=== PATIENT | male | born 1945 | race Caucasian/White ===

== ENCOUNTER 2020-11-26 10:05 | Inpatient (IN) ==
[2020-11-26] MEDS ORDERED: Ondansetron 4 mg VIAL 2 MG/ML 2 ml VIAL IV PRN (11:19)
[2020-11-26] MEDS ORDERED: Al Hydrox/Mg Hydrox/Simet LIQ 30 ML UDC PO PRN (11:19)
[2020-11-26 11:21] LABS: ABS Basophils 0.1 10^3/ul (0-0.2); ABS Eosinophils 0.1 10^3/ul (0-0.6); ABS Lymphocytes 1.7 10^3/ul (1.0-4.8); ABS Monocytes 0.8 10^3/ul (0-0.8); Eosinophil % 2.1 %; Hematocrit 36 % (42-52); Hemoglobin 12.3 g/dL (14.0-18.0); Lymphocyte % 25.3 %; Mean Corpuscular HGB Conc 34 g/dL (31-36); Mean Corpuscular Hemoglobin 33 pg (27-31); Mean Corpuscular Volume 96 fL (80-94); Nucleated Red Blood Cells % 0.1; Platelet Count 234 10^3/uL (150-450); Red Blood Count 3.73 10^6 /uL (4.18-5.48); Red Cell Distribution Width 14 % (10-15); White Blood Count 6.7 10^3/uL (3.5-10.8)
[2020-11-26] MEDS ORDERED: Albuterol HFA INHALER 8 gm MDI INH PRN (11:23)
[2020-11-26 11:38] LABS: ALT 11 U/L (7-52); Albumin 3.7 g/dL (3.2-5.2); Albumin/Globulin Ratio 1.2 (1-3); Alkaline Phosphatase 87 U/L (34-104); Anion Gap 5 mmol/L (2-11); BUN/Creatinine Ratio 19.2 (8-20); Blood Urea Nitrogen 23 mg/dL (6-24); CO2 Carbon Dioxide 29 mmol/L (22-32); Calcium 9.3 mg/dL (8.6-10.3); Chloride 107 mmol/L (101-111); EGFR African American 71.2 (>60); EGFR Non-African American 58.9 (>60); Globulin 3.1 g/dL (2-4); Glucose 110 mg/dL (70-100); Potassium 4.1 mmol/L (3.5-5.0); Sodium 141 mmol/L (135-145); Total Protein 6.8 g/dL (6.4-8.9)
[2020-11-26 11:47] LABS: AST 21 U/L (13-39); Cholesterol 122 mg/dL; HDL Cholesterol 26.1 mg/dL; LDL Cholesterol 30 mg/dL; Magnesium 2.1 mg/dL (1.9-2.7); Triglycerides 328 mg/dL
[2020-11-26] MEDS: Nicotine PATCH 21 MG/24 HR PATCH TRANSDERM SCH (11:53)
[2020-11-26] MEDS ORDERED: Heparin DRIP 25,000 UNITS BAG 25,000 UNITS/500 ML BAG IV SCH (12:15)
[2020-11-26 12:33] LABS: Activated Partial Thrombo Time 53.3 seconds (26.0-38.0); INR 1.05 (0.82-1.09)
[2020-11-26] MEDS ORDERED: Heparin 5000 UNITS/ML 1 mL VIAL IV PRN (13:00)
[2020-11-26] MEDS ORDERED: NS 0.9% 1000 ml BAG 1,000 ML IV SCH ×2 (13:30→17:45)
[2020-11-26] MEDS ORDERED: Perflutren Lipid Microsphere 3 ML VIAL ONE (13:43)
[2020-11-26 14:24] LABS: TSH Ultra Thyroid Stim Horm 2.24 mcIU/mL (0.34-5.60)
[2020-11-26] MEDS ORDERED: Heparin 1,000 UNIT/ML 10 ml (10,000 UNITS) CATHLAB/DIALYSIS ONE ×4 (15:02→17:13)
[2020-11-26] MEDS ORDERED: Heparin 2 UNITS/ML 1000 mls 2,000 ML IV ONE (15:02)
[2020-11-26] MEDS ORDERED: VERAPAMIL 2.5 MG/ML 2 ML VIAL ** 5 mg/2 ml ONE ×2 (15:02→16:48)
[2020-11-26] MEDS ORDERED: Midazolam 5 mg/5 ml VIAL 1 mg/ml 5 ml VIAL (5 mg) ONE ×2 (15:02→16:33)
[2020-11-26] MEDS ORDERED: Lidocaine 1% VIAL 10 MG/ML VIAL ONE (15:02)
[2020-11-26] MEDS ORDERED: nitroGLYCERIN DRIP 0 MCG/0 ML BTL ONE (15:02)
[2020-11-26] MEDS ORDERED: Iohexol 350 (CONTRAST) 200 ML MDV IV ONE ×2 (15:03→16:39)
[2020-11-26] MEDS ORDERED: diPHENhydraMINE IV 50 MG/ML 1 ml VIAL (BENADRYL) ONE (15:04)
[2020-11-26] MEDS ORDERED: HYDROmorphone 1 MG/1 ML SYRINGE ONE ×2 (16:15→16:56)
[2020-11-26] MEDS ORDERED: Heparin 2 UNITS/ML 1000 mls 1,000 ML IV ONE ×2 (16:39→16:43)
[2020-11-26] MEDS ORDERED: Heparin 5000 UNITS/ML 1 mL VIAL SUBCUT SCH (22:00)
[2020-11-27 05:03] LABS: ABS Basophils 0.1 10^3/ul (0-0.2); ABS Eosinophils 0.1 10^3/ul (0-0.6); ABS Lymphocytes 1.2 10^3/ul (1.0-4.8); ABS Monocytes 0.9 10^3/ul (0-0.8); ABS Neutrophils 4.8 10^3/ul (1.5-7.7); Eosinophil % 1.8 %; Hematocrit 34 % (42-52); Hemoglobin 11.5 g/dL (14.0-18.0); Lymphocyte % 17.4 %; Mean Corpuscular HGB Conc 34 g/dL (31-36); Mean Corpuscular Hemoglobin 32 pg (27-31); Mean Corpuscular Volume 96 fL (80-94); Mean Platelet Volume 7.8 fL (7.4-10.4); Platelet Count 219 10^3/uL (150-450); Red Blood Count 3.56 10^6 /uL (4.18-5.48); Red Cell Distribution Width 15 % (10-15); White Blood Count 7.2 10^3/uL (3.5-10.8)
[2020-11-27 05:18] LABS: Anion Gap 2 mmol/L (2-11); BUN/Creatinine Ratio 17.6 (8-20); Blood Urea Nitrogen 19 mg/dL (6-24); CO2 Carbon Dioxide 30 mmol/L (22-32); Calcium 8.8 mg/dL (8.6-10.3); Chloride 107 mmol/L (101-111); EGFR African American 80.4 (>60); EGFR Non-African American 66.5 (>60); Glucose 105 mg/dL (70-100); Potassium 4.3 mmol/L (3.5-5.0); Sodium 139 mmol/L (135-145)
[2020-11-27] MEDS: Nicotine PATCH 21 MG/24 HR PATCH TRANSDERM SCH (08:19)
[2020-11-27] MEDS ORDERED: Cholecalciferol (VIT D3) 1,000 unit TAB PO SCH (09:00)
[2020-11-27] MEDS ORDERED: Tiotropium Brom/Olodaterol MDI INH SCH (09:00)
[2020-11-27] MEDS ORDERED: Aspirin EC 81 mg TAB.EC (enteric coated) PO SCH (09:00)
[2020-11-27] MEDS ORDERED: Heparin DRIP 25,000 UNITS BAG 25,000 UNITS/500 ML BAG IV SCH ×2 (10:15)
[2020-11-27] MEDS ORDERED: Heparin DRIP 25,000 UNITS BAG 25,000 UNITS/500 ML BAG ONE (10:20)
[2020-11-27] MEDS ORDERED: Heparin 5000 UNITS/ML 1 mL VIAL IV SCH ×2 (11:00)
[2020-11-27 11:17] VITALS: BP 133/64
== END 2020-11-27 11:30 | disposition short-term general hospital (02) | DRG 281 ==
LOC: MEDTELE 10:05 → ED 10:05 → OBSVTOIN 12:37 → MEDTELE 12:43 → ICU 18:41
PROVIDERS: ADMIT Pediatrics; ATTEND Internal Medicine Cardiovascular Disease

== ENCOUNTER 2023-02-28 20:14 | Inpatient (IN) ==
[2023-02-28] MEDS: Lactated Ringers 1000 ml BAG 1,000 ML IV SCH (21:41)
[2023-02-28 21:53] LABS: Hematocrit 28.5 % (38-53); Hemoglobin 9.2 g/dL (13.2-16.3); Mean Corpuscular Hemoglobin 26.9 pg (27-33); Mean Corpuscular Hgb Conc 32.3 g/dL (31-36); Mean Corpuscular Volume 83.1 fL (80-97); Mean Platelet Volume 7.3 fL (7.5-11.2); Platelet Count 336 10^3/uL (150-450); Red Blood Count 3.42 10^6/uL (4.06-5.63); Red Cell Distribution Width 17.2 % (12-17); White Blood Count 6.8 10^3/uL (3.6-10.2)
[2023-02-28 22:03] LABS: Albumin 3.7 g/dL (3.2-5.2); Creatinine, Serum 2.17 mg/dL (0.67-1.17); Globulin 3.7 g/dL (2-4); Magnesium 1.7 mg/dL (1.9-2.7); Potassium 2.9 mmol/L (3.5-5.0); Total Bilirubin 0.5 mg/dL (0.2-1.0); Total Protein 7.4 g/dL (6.4-8.9); eGFR CKD-EPI 30.4 (>60)
[2023-02-28] MEDS ORDERED: Magnesium Sulfate IV 3 GM in NS 0.9% 100 ml BAG 100 ML IVPB ONE (22:16)
[2023-02-28 22:21] LABS: ABS Eosinophils 0.1 10^3/uL (0.0-0.5); ABS Lymphocytes 0.5 10^3/uL (1.0-4.8); ABS Monocytes 1.7 10^3/uL (0.0-1.1); ABS Neutrophils 4.5 10^3/uL (1.5-7.6); ABS Nucleated RBC 0.01 10^3/ul; Eosinophil % 1.1 %; Lymphocyte % 7.9 %; Nucleated Red Blood Cells % 0.2 /100 WBC (0.0-0.4)
[2023-02-28] MEDS: KCL 20 MEQ/100 ML IVPREMIX 20 MEQ/100 ML BAG IV SCH (22:40)
[2023-02-28 22:58] LABS: C Reactive Protein 380.85 mg/L (<8.01)
[2023-02-28] MEDS ORDERED: Metoprolol Tartrate 5 mg VIAL 5 ml VIAL (1 mg/ml) IV ONE (23:07)
[2023-02-28] MEDS ORDERED: Lactated Ringers 1000 ml BAG 500 ML IV ONE (23:07)
[2023-02-28] MEDS ORDERED: Ondansetron 4 mg VIAL 2 MG/ML 2 ml VIAL IV PRN (23:09)
[2023-02-28 23:15] LABS: High Sensitivity Troponin 1 Hr 26 pg/mL (<20)
[2023-02-28] MEDS ORDERED: Ondansetron 4 mg VIAL 2 MG/ML 2 ml VIAL IV ONE (23:22)
[2023-02-28] MEDS ORDERED: Levalbuterol HFA INHALER MDI INH PRN (23:43)
[2023-02-28] MEDS ORDERED: guaiFENesin 100 mg/5 ml LIQ unit dose cup PO PRN (23:49)
[2023-03-01 00:38] LABS: Urine Appearance Clear; Urine Bilirubin Negative (Negative); Urine Blood Negative (Negative); Urine Color Yellow; Urine Glucose Negative (Negative); Urine Ketones Negative (Negative); Urine Nitrite Negative (Negative); Urine Protein Negative (Negative); Urine Urobilinogen Negative (Negative)
[2023-03-01] MEDS: Pantoprazole VIAL 40 MG VIAL IV SCH ×3 (01:12→20:33)
[2023-03-01] MEDS: Heparin 5000 UNITS/ML 1 mL VIAL SUBCUT SCH ×4 (02:38→20:34)
[2023-03-01] MEDS: KCL 20 MEQ/100 ML IVPREMIX 20 MEQ/100 ML BAG IV SCH ×3 (02:39→11:28)
[2023-03-01 06:18] LABS: Hematocrit 26.1 % (38-53); Hemoglobin 8.5 g/dL (13.2-16.3); Mean Corpuscular Hgb Conc 32.7 g/dL (31-36); Mean Corpuscular Volume 82.4 fL (80-97); Mean Platelet Volume 7.3 fL (7.5-11.2); Platelet Count 287 10^3/uL (150-450); Red Blood Count 3.16 10^6/uL (4.06-5.63); Red Cell Distribution Width 17.3 % (12-17); White Blood Count 6.8 10^3/uL (3.6-10.2)
[2023-03-01] MEDS: Lactated Ringers 1000 ml BAG 1,000 ML IV SCH (06:21)
[2023-03-01 06:37] LABS: Calcium 8.6 mg/dL (8.6-10.3); Magnesium 2.4 mg/dL (1.9-2.7); Potassium 3.1 mmol/L (3.5-5.0); eGFR CKD-EPI 33.5 (>60)
[2023-03-01 07:25] LABS: ABS Lymphocytes 0.5 10^3/uL (1.0-4.8); ABS Monocytes 1.9 10^3/uL (0.0-1.1); ABS Neutrophils 4.5 10^3/uL (1.5-7.6); Eosinophil % 0.5 %; Lymphocyte % 6.6 %; RBC Morphology Normal (Normal)
[2023-03-01] MEDS: Metoprolol Tartrate 5 mg VIAL 5 ml VIAL (1 mg/ml) IV SCH ×4 (07:47→20:36)
[2023-03-01 15:16] LABS: Hematocrit 27.1 % (38-53); Hemoglobin 8.9 g/dL (13.2-16.3); Mean Corpuscular Hemoglobin 27.6 pg (27-33); Mean Corpuscular Hgb Conc 32.8 g/dL (31-36); Mean Corpuscular Volume 84.3 fL (80-97); Mean Platelet Volume 7.1 fL (7.5-11.2); Platelet Count 332 10^3/uL (150-450); Red Blood Count 3.22 10^6/uL (4.06-5.63); Red Cell Distribution Width 17.3 % (12-17); White Blood Count 6.9 10^3/uL (3.6-10.2)
[2023-03-01 16:43] LABS: ABS Eosinophils 0.1 10^3/uL (0.0-0.5); ABS Lymphocytes 0.6 10^3/uL (1.0-4.8); ABS Neutrophils 4.3 10^3/uL (1.5-7.6); ABS Nucleated RBC 0.01 10^3/ul; Eosinophil % 1.2 %; Lymphocyte % 8.4 %; Nucleated Red Blood Cells % 0.2 /100 WBC (0.0-0.4)
[2023-03-02 06:57] LABS: Hemoglobin 9.1 g/dL (13.2-16.3); Mean Corpuscular Hemoglobin 27.3 pg (27-33); Mean Corpuscular Hgb Conc 32.6 g/dL (31-36); Mean Corpuscular Volume 83.9 fL (80-97); Mean Platelet Volume 7.3 fL (7.5-11.2); Platelet Count 351 10^3/uL (150-450); Red Blood Count 3.34 10^6/uL (4.06-5.63); Red Cell Distribution Width 17.2 % (12-17)
[2023-03-02 07:09] LABS: Calcium 9.2 mg/dL (8.6-10.3); Magnesium 2.7 mg/dL (1.9-2.7); Potassium 3.2 mmol/L (3.5-5.0)
[2023-03-02 07:15] LABS: Creatinine, Serum 2.09 mg/dL (0.67-1.17); eGFR CKD-EPI 31.8 (>60)
[2023-03-02 08:18] LABS: Tear Drop Cells 1+
[2023-03-02 08:21] LABS: ABS Eosinophils 0.1 10^3/uL (0.0-0.5); ABS Lymphocytes 0.6 10^3/uL (1.0-4.8); ABS Monocytes 1.7 10^3/uL (0.0-1.1); ABS Neutrophils 4.5 10^3/uL (1.5-7.6); ABS Nucleated RBC 0.01 10^3/ul; Anisocytosis 2+; Eosinophil % 1.7 %; Lymphocyte % 9.2 %; Nucleated Red Blood Cells % 0.2 /100 WBC (0.0-0.4)
[2023-03-02] MEDS: Pantoprazole VIAL 40 MG VIAL IV SCH ×2 (08:37→20:46)
[2023-03-02] MEDS: Heparin 5000 UNITS/ML 1 mL VIAL SUBCUT SCH ×2 (08:37→20:46)
[2023-03-02] MEDS: Metoprolol Tartrate 5 mg VIAL 5 ml VIAL (1 mg/ml) IV SCH ×4 (08:38→20:45)
[2023-03-02] MEDS: KCL 20 MEQ/100 ML IVPREMIX 20 MEQ/100 ML BAG IV SCH ×2 (08:53→11:56)
[2023-03-02] MEDS ORDERED: NS 0.9% 500 ml BAG 500 ML IV ONE ×2 (09:46→16:06)
[2023-03-03] MEDS ORDERED: KCL 20 MEQ/100 ML IVPREMIX 20 MEQ/100 ML BAG IV ONE ×2 (01:46→07:41)
[2023-03-03] MEDS: Ondansetron 4 mg VIAL 2 MG/ML 2 ml VIAL IV PRN (02:41)
[2023-03-03 06:09] LABS: Hematocrit 29.9 % (38-53); Hemoglobin 9.4 g/dL (13.2-16.3); Mean Corpuscular Hemoglobin 26.5 pg (27-33); Mean Corpuscular Hgb Conc 31.6 g/dL (31-36); Mean Corpuscular Volume 83.9 fL (80-97); Mean Platelet Volume 7.1 fL (7.5-11.2); Platelet Count 404 10^3/uL (150-450); Red Blood Count 3.57 10^6/uL (4.06-5.63); Red Cell Distribution Width 17.2 % (12-17); White Blood Count 9.9 10^3/uL (3.6-10.2)
[2023-03-03 06:27] LABS: Calcium 9.1 mg/dL (8.6-10.3); Creatinine, Serum 2.14 mg/dL (0.67-1.17); Potassium 3.5 mmol/L (3.5-5.0); eGFR CKD-EPI 30.9 (>60)
[2023-03-03] MEDS: Lactated Ringers 1000 ml BAG 500 ML IV ONE ×2 (06:39→09:23)
[2023-03-03 08:04] LABS: Magnesium 2.8 mg/dL (1.9-2.7)
[2023-03-03 08:28] LABS: ABS Eosinophils 0.1 10^3/uL (0.0-0.5); ABS Lymphocytes 0.7 10^3/uL (1.0-4.8); ABS Monocytes 1.9 10^3/uL (0.0-1.1); ABS Neutrophils 7.2 10^3/uL (1.5-7.6); ABS Nucleated RBC 0.02 10^3/ul; Eosinophil % 0.9 %; Lymphocyte % 6.7 %; Nucleated Red Blood Cells % 0.2 /100 WBC (0.0-0.4); RBC Morphology Normal (Normal)
[2023-03-03] MEDS ORDERED: Albuterol/Ipratropium NEB.SOL (2.5/0.5 MG) 3 ML NEB.SOLN INH ONE (08:42)
[2023-03-03] MEDS: Metoprolol Tartrate 5 mg VIAL 5 ml VIAL (1 mg/ml) IV SCH ×4 (09:21→20:33)
[2023-03-03] MEDS: Pantoprazole VIAL 40 MG VIAL IV SCH ×2 (09:21→20:30)
[2023-03-03] MEDS: Heparin 5000 UNITS/ML 1 mL VIAL SUBCUT SCH ×2 (09:22→20:35)
[2023-03-04 06:47] LABS: Calcium 9.3 mg/dL (8.6-10.3); Creatinine, Serum 3.09 mg/dL (0.67-1.17); Potassium 3.5 mmol/L (3.5-5.0); eGFR CKD-EPI 19.9 (>60)
[2023-03-04] MEDS ORDERED: Potassium Chlor 20 meq TAB.ER PO ONE (07:48)
[2023-03-04] MEDS: Heparin 5000 UNITS/ML 1 mL VIAL SUBCUT SCH ×2 (09:05→22:11)
[2023-03-04] MEDS: Pantoprazole VIAL 40 MG VIAL IV SCH (09:06)
[2023-03-04] MEDS: Metoprolol Tartrate 5 mg VIAL 5 ml VIAL (1 mg/ml) IV SCH ×2 (09:06→12:54)
[2023-03-04] MEDS: NS 0.9% 1000 ml BAG 1,000 ML IV SCH ×2 (09:31→16:21)
[2023-03-04] MEDS ORDERED: Lactated Ringers 1000 ml BAG 1,000 ML IV ONE (10:05)
[2023-03-04] MEDS: Ondansetron 4 mg VIAL 2 MG/ML 2 ml VIAL IV PRN (22:09)
[2023-03-05 02:31] LABS: Urine Appearance Cloudy; Urine Bilirubin Negative (Negative); Urine Blood Negative (Negative); Urine Color Yellow; Urine Glucose Negative (Negative); Urine Ketones Negative (Negative); Urine Nitrite Negative (Negative); Urine Protein Negative (Negative); Urine Specific Gravity 1.014 (1.002-1.030); Urine Urobilinogen Negative (Negative)
[2023-03-05 07:11] LABS: Hematocrit 29.8 % (38-53); Hemoglobin 9.4 g/dL (13.2-16.3); Mean Corpuscular Hemoglobin 27.2 pg (27-33); Mean Corpuscular Hgb Conc 31.5 g/dL (31-36); Mean Corpuscular Volume 86.5 fL (80-97); Mean Platelet Volume 7.1 fL (7.5-11.2); Platelet Count 448 10^3/uL (150-450); Red Blood Count 3.45 10^6/uL (4.06-5.63); Red Cell Distribution Width 17.9 % (12-17); White Blood Count 15.2 10^3/uL (3.6-10.2)
[2023-03-05 07:21] LABS: Calcium 9.3 mg/dL (8.6-10.3); Creatinine, Serum 2.59 mg/dL (0.67-1.17); Potassium 3.8 mmol/L (3.5-5.0); eGFR CKD-EPI 24.6 (>60)
[2023-03-05 08:04] LABS: ABS Basophils 0.1 10^3/uL (0.0-0.1); ABS Eosinophils 0.1 10^3/uL (0.0-0.5); ABS Lymphocytes 1.1 10^3/uL (1.0-4.8); ABS Monocytes 1.6 10^3/uL (0.0-1.1); ABS Neutrophils 12.3 10^3/uL (1.5-7.6); ABS Nucleated RBC 0.01 10^3/ul; Eosinophil % 0.7 %; Lymphocyte % 7.5 %; Nucleated Red Blood Cells % 0.1 /100 WBC (0.0-0.4)
[2023-03-05] MEDS: Heparin 5000 UNITS/ML 1 mL VIAL SUBCUT SCH ×2 (09:07→21:13)
[2023-03-05] MEDS ORDERED: NS 0.9% 1000 ml BAG 1,000 ML IV ONE (11:03)
[2023-03-05] MEDS ORDERED: NS 0.9% 1000 ml BAG 1,000 ML IV SCH (14:30)
[2023-03-05] MEDS ORDERED: Albuterol HFA INHALER 8 gm MDI INH PRN (16:16)
[2023-03-05 17:13] LABS: C Reactive Protein 65.8 mg/L (<8.01)
[2023-03-05] MEDS: Ondansetron 4 mg VIAL 2 MG/ML 2 ml VIAL IV PRN (21:28)
[2023-03-05] MEDS ORDERED: Morphine 2 MG/ML SYRINGE IV PRN (23:08)
[2023-03-06] MEDS ORDERED: Lactated Ringers 1000 ml BAG 1,000 ML IV ONE (04:36)
[2023-03-06 06:48] LABS: Calcium 9.8 mg/dL (8.6-10.3); Creatinine, Serum 3.11 mg/dL (0.67-1.17); Magnesium 2.7 mg/dL (1.9-2.7); Potassium 4.3 mmol/L (3.5-5.0); eGFR CKD-EPI 19.7 (>60)
[2023-03-06 07:39] LABS: Hematocrit 31.2 % (38-53); Hemoglobin 9.4 g/dL (13.2-16.3); Mean Corpuscular Hemoglobin 26.9 pg (27-33); Mean Corpuscular Hgb Conc 30.3 g/dL (31-36); Mean Platelet Volume 7.2 fL (7.5-11.2); Platelet Count 497 10^3/uL (150-450); Red Cell Distribution Width 18.4 % (12-17); White Blood Count 23.1 10^3/uL (3.6-10.2)
[2023-03-06 07:52] LABS: Venous Bicarbonate HCO3 10.6 mmol/L (24-28)
[2023-03-06] MEDS ORDERED: Lactated Ringers 1000 ml BAG 1,000 ML IV SCH ×2 (08:00→19:07)
[2023-03-06] MEDS ORDERED: Sodium Bicarbonate 8.4% SYR 50 ml SYRINGE IV ONE (08:26)
[2023-03-06 08:45] LABS: ABS Lymphocytes 0.8 10^3/uL (1.0-4.8); ABS Monocytes 1.6 10^3/uL (0.0-1.1); ABS Neutrophils 20.6 10^3/uL (1.5-7.6); ABS Nucleated RBC 0.06 10^3/ul; Eosinophil % 0.1 %; Lymphocyte % 3.3 %; Nucleated Red Blood Cells % 0.2 /100 WBC (0.0-0.4)
[2023-03-06] MEDS ORDERED: Aspirin EC 81 mg TAB.EC (enteric coated) PO SCH (09:00)
[2023-03-06] MEDS: Heparin 5000 UNITS/ML 1 mL VIAL SUBCUT SCH ×2 (09:46→20:55)
[2023-03-06] MEDS: cefTRIAXone 1 gm/50 mL D5W 1 GM/50 ML BAG IV SCH (09:47)
[2023-03-06] MEDS: metroNIDAZOLE IV 500 MG/100ML 500 MG/100 ML BAG IVPB SCH ×2 (09:47→18:26)
[2023-03-06] MEDS ORDERED: Prochlorperazine 5 mg/ml 2 ml VIAL (10 mg) IV PRN (11:57)
[2023-03-06] MEDS ORDERED: Naloxone 0.4 mg VIAL 0.4 mg/ml 1 ml VIAL IV PRN (11:57)
[2023-03-06] MEDS ORDERED: fentaNYL 100 mcg/2 ml 50 MCG/ML VIAL IV PRN (11:57)
[2023-03-06] MEDS: Tiotropium Brom/Olodaterol MDI (ACUTE) INH SCH (12:00)
[2023-03-06] MEDS ORDERED: Bupivacaine 0.25% EPI 200,000 30 ML SDV ONE (12:29)
[2023-03-06] MEDS ORDERED: metroNIDAZOLE IV 500 MG/100ML 500 MG/100 ML BAG ONE (12:43)
[2023-03-06] MEDS ORDERED: Ondansetron 4 mg VIAL 2 MG/ML 2 ml VIAL ONE (12:47)
[2023-03-06] MEDS ORDERED: Dexamethasone IV 4 MG/ML VIAL 1 ml VIAL ONE (12:47)
[2023-03-06] MEDS ORDERED: Succinylcholine 200 mg VIAL 20 mg/ml 10 ml VIAL (200 mg) ONE (12:47)
[2023-03-06] MEDS ORDERED: Acetaminophen IV 1 GM/100ML 1,000 MG/100 ML BAG IV ONE (12:47)
[2023-03-06] MEDS ORDERED: Propofol 10 MG/ML 20 ML BTL ONE (12:47)
[2023-03-06] MEDS ORDERED: Rocuronium 50 mg VIAL 10 mg/ml 5 ml VIAL (50 mg) ONE (12:47)
[2023-03-06] MEDS ORDERED: fentaNYL 250 mcg/5 ml 50 MCG/ML 5 ml VIAL (250 MCG) ONE (12:48)
[2023-03-06] MEDS ORDERED: Metoclopramide 5 MG/ML VIAL (10 mg) ONE (13:57)
[2023-03-06 16:37] LABS: Urine Potassium Concentration 16.7 mmol/L
[2023-03-06] MEDS ORDERED: Morphine 4 MG/ML VIAL (1 ml) ONE (17:27)
[2023-03-06] MEDS: Morphine 4 MG/ML VIAL (1 ml) IV PRN ×2 (17:27→17:40)
[2023-03-06 23:57] LABS: PCO2 Arterial 35 mmHg (35-45); PO2 Arterial 191 mmHg (80-100)
[2023-03-07] MEDS ORDERED: Sodium Bicarbonate 8.4% SYR 50 ml SYRINGE IV ONE ×2 (00:13→06:00)
[2023-03-07] MEDS: metroNIDAZOLE IV 500 MG/100ML 500 MG/100 ML BAG IVPB SCH ×3 (00:44→16:30)
[2023-03-07 01:37] LABS: Urine Appearance Turbid; Urine Bilirubin Negative (Negative); Urine Blood 2+ (Negative); Urine Color Yellow; Urine Glucose Negative (Negative); Urine Ketones Negative (Negative); Urine Nitrite Negative (Negative); Urine Protein 1+(30 mg/dL) (Negative); Urine Urobilinogen Negative (Negative)
[2023-03-07 01:45] LABS: Hematocrit 28.4 % (38-53); Hemoglobin 8.9 g/dL (13.2-16.3); Mean Corpuscular Hemoglobin 27.2 pg (27-33); Mean Corpuscular Hgb Conc 31.3 g/dL (31-36); Mean Corpuscular Volume 86.9 fL (80-97); Mean Platelet Volume 6.9 fL (7.5-11.2); Platelet Count 368 10^3/uL (150-450); Red Blood Count 3.27 10^6/uL (4.06-5.63); White Blood Count 28.9 10^3/uL (3.6-10.2)
[2023-03-07 01:51] LABS: Urine Bacteria Absent (Absent); Urine Red Blood Cell 3+(>10/hpf) (Absent); Urine Squamous Epithelial Cell Present (Absent); Urine Uric Acid Crystals Present (Absent); Urine White Blood Cell Trace(0-5/hpf) (Absent)
[2023-03-07 02:01] LABS: Albumin 3.2 g/dL (3.2-5.2); Calcium 8.8 mg/dL (8.6-10.3); Creatinine, Serum 2.5 mg/dL (0.67-1.17); Globulin 3.2 g/dL (2-4); Potassium 3.9 mmol/L (3.5-5.0); Total Bilirubin 0.2 mg/dL (0.2-1.0); Total Protein 6.4 g/dL (6.4-8.9); eGFR CKD-EPI 25.7 (>60)
[2023-03-07] MEDS ORDERED: HYDROmorphone 1 MG/1 ML SYRINGE IV SLOW PU PRN (02:08)
[2023-03-07] MEDS ORDERED: fentaNYL 100 mcg/2 ml 50 MCG/ML VIAL IV SLOW PU PRN ×2 (02:14→04:10)
[2023-03-07 02:17] LABS: Anisocytosis 3+; Hypochromasia 1+; Polychromasia 2+
[2023-03-07] MEDS: HYDROmorphone 0.5 MG/0.5 ML SYRINGE IV SLOW PU PRN ×3 (02:26→19:21)
[2023-03-07 04:33] LABS: Venous Bicarbonate HCO3 16.6 mmol/L (24-28)
[2023-03-07 04:37] LABS: Hematocrit 26.4 % (38-53); Hemoglobin 8.3 g/dL (13.2-16.3); Mean Corpuscular Hemoglobin 26.9 pg (27-33); Mean Corpuscular Hgb Conc 31.6 g/dL (31-36); Mean Corpuscular Volume 85.1 fL (80-97); Mean Platelet Volume 7.1 fL (7.5-11.2); Platelet Count 356 10^3/uL (150-450); Red Cell Distribution Width 17.7 % (12-17); White Blood Count 23.9 10^3/uL (3.6-10.2)
[2023-03-07 04:38] LABS: ABS Lymphocytes 0.4 10^3/uL (1.0-4.8); ABS Monocytes 0.9 10^3/uL (0.0-1.1); ABS Neutrophils 27.5 10^3/uL (1.5-7.6); ABS Nucleated RBC 0.01 10^3/ul; Lymphocyte % 1.5 %
[2023-03-07 04:56] LABS: Calcium 8.5 mg/dL (8.6-10.3); Creatinine, Serum 2.34 mg/dL (0.67-1.17); Potassium 3.7 mmol/L (3.5-5.0); eGFR CKD-EPI 27.8 (>60)
[2023-03-07 05:07] LABS: ABS Basophils 0.1 10^3/uL (0.0-0.1); ABS Lymphocytes 0.4 10^3/uL (1.0-4.8); ABS Monocytes 0.9 10^3/uL (0.0-1.1); ABS Neutrophils 22.5 10^3/uL (1.5-7.6); ABS Nucleated RBC 0.03 10^3/ul; Lymphocyte % 1.8 %; Nucleated Red Blood Cells % 0.1 /100 WBC (0.0-0.4)
[2023-03-07] MEDS: Tiotropium Brom/Olodaterol MDI (ACUTE) INH SCH (07:22)
[2023-03-07] MEDS: Heparin 5000 UNITS/ML 1 mL VIAL SUBCUT SCH ×2 (08:29→20:44)
[2023-03-07 09:56] LABS: Magnesium 2.3 mg/dL (1.9-2.7)
[2023-03-07] MEDS ORDERED: Lactated Ringers 1000 ml BAG 1,000 ML IV SCH ×2 (10:00→17:00)
[2023-03-07] MEDS: cefTRIAXone 1 gm/50 mL D5W 1 GM/50 ML BAG IV SCH (10:04)
[2023-03-07] MEDS ORDERED: Zosyn per Pharmacy NOTE FOLLOW UP SCH (12:00)
[2023-03-07 13:52] LABS: Hematocrit 27.4 % (38-53); Hemoglobin 8.6 g/dL (13.2-16.3); Mean Corpuscular Hemoglobin 26.4 pg (27-33); Mean Corpuscular Hgb Conc 31.5 g/dL (31-36); Mean Corpuscular Volume 83.9 fL (80-97); Mean Platelet Volume 7.1 fL (7.5-11.2); Platelet Count 398 10^3/uL (150-450); Red Blood Count 3.27 10^6/uL (4.06-5.63); Red Cell Distribution Width 18.1 % (12-17); White Blood Count 23.4 10^3/uL (3.6-10.2)
[2023-03-07 14:14] LABS: Creatinine, Serum 1.95 mg/dL (0.67-1.17); Magnesium 2.3 mg/dL (1.9-2.7); Phosphorus 3.8 mg/dL (2.5-5.0); Potassium 3.6 mmol/L (3.5-5.0); eGFR CKD-EPI 34.6 (>60)
[2023-03-07 14:39] LABS: ABS Lymphocytes 0.5 10^3/uL (1.0-4.8); ABS Monocytes 1.7 10^3/uL (0.0-1.1); ABS Neutrophils 21.3 10^3/uL (1.5-7.6); ABS Nucleated RBC 0.01 10^3/ul; Lymphocyte % 2.1 %
[2023-03-07] MEDS: Cefepime 2 GM in Dextrose 2 GM/50 ML BAG IV SCH (15:44)
[2023-03-07] MEDS ORDERED: GABAPENTIN 100 MG PO PRN (17:44)
[2023-03-07] MEDS: Ondansetron 4 mg VIAL 2 MG/ML 2 ml VIAL IV PRN (21:19)
[2023-03-08] MEDS: metroNIDAZOLE IV 500 MG/100ML 500 MG/100 ML BAG IVPB SCH ×3 (00:27→16:30)
[2023-03-08 00:41] LABS: Venous Bicarbonate HCO3 22.9 mmol/L (24-28)
[2023-03-08] MEDS: HYDROmorphone 0.5 MG/0.5 ML SYRINGE IV SLOW PU PRN ×2 (01:36→09:26)
[2023-03-08] MEDS: Cefepime 2 GM in Dextrose 2 GM/50 ML BAG IV SCH ×2 (04:24→16:30)
[2023-03-08 05:15] LABS: Hematocrit 25.3 % (38-53); Hemoglobin 8.1 g/dL (13.2-16.3); Mean Corpuscular Hemoglobin 27.3 pg (27-33); Mean Corpuscular Volume 85.4 fL (80-97); Platelet Count 320 10^3/uL (150-450); Red Blood Count 2.97 10^6/uL (4.06-5.63); White Blood Count 14.7 10^3/uL (3.6-10.2)
[2023-03-08 05:27] LABS: Calcium 8.3 mg/dL (8.6-10.3); Creatinine, Serum 1.77 mg/dL (0.67-1.17); Potassium 3.2 mmol/L (3.5-5.0); eGFR CKD-EPI 38.8 (>60)
[2023-03-08 05:31] LABS: ABS Lymphocytes 0.7 10^3/uL (1.0-4.8); ABS Monocytes 1.1 10^3/uL (0.0-1.1); ABS Neutrophils 12.8 10^3/uL (1.5-7.6); ABS Nucleated RBC 0.01 10^3/ul; Eosinophil % 0.1 %; Lymphocyte % 4.9 %
[2023-03-08] MEDS: Tiotropium Brom/Olodaterol MDI (ACUTE) INH SCH (07:31)
[2023-03-08] MEDS ORDERED: Senna TAB 8.6 mg TAB PO PRN (08:28)
[2023-03-08] MEDS ORDERED: Polyethylene Glycol 3350 17 GM PACKET PO PRN (08:28)
[2023-03-08] MEDS: Heparin 5000 UNITS/ML 1 mL VIAL SUBCUT SCH ×2 (09:26→17:57)
[2023-03-08] MEDS: KCL 20 MEQ/100 ML IVPREMIX 20 MEQ/100 ML BAG IV SCH ×3 (10:15→16:30)
[2023-03-08] MEDS ORDERED: Lactated Ringers 1000 ml BAG 500 ML IV ONE (13:15)
[2023-03-08 17:29] LABS: Hematocrit 26.7 % (38-53); Hemoglobin 8.2 g/dL (13.2-16.3)
[2023-03-08 18:09] LABS: Calcium 8.5 mg/dL (8.6-10.3); Creatinine, Serum 1.52 mg/dL (0.67-1.17); Potassium 3.8 mmol/L (3.5-5.0); eGFR CKD-EPI 46.6 (>60)
[2023-03-08] MEDS: Morphine 2 MG/ML SYRINGE IV PRN (21:09)
[2023-03-09] MEDS: metroNIDAZOLE IV 500 MG/100ML 500 MG/100 ML BAG IVPB SCH ×3 (01:15→16:37)
[2023-03-09] MEDS: Heparin 5000 UNITS/ML 1 mL VIAL SUBCUT SCH ×3 (01:15→15:38)
[2023-03-09] MEDS: Cefepime 2 GM in Dextrose 2 GM/50 ML BAG IV SCH ×2 (02:56→15:38)
[2023-03-09 04:40] LABS: ABS Eosinophils 0.1 10^3/uL (0.0-0.5); ABS Lymphocytes 0.9 10^3/uL (1.0-4.8); ABS Monocytes 1.3 10^3/uL (0.0-1.1); ABS Neutrophils 12.8 10^3/uL (1.5-7.6); ABS Nucleated RBC 0.01 10^3/ul; Eosinophil % 0.7 %; Hematocrit 28.9 % (38-53); Lymphocyte % 5.7 %; Mean Corpuscular Hemoglobin 26.4 pg (27-33); Mean Corpuscular Hgb Conc 31.1 g/dL (31-36); Mean Corpuscular Volume 84.8 fL (80-97); Mean Platelet Volume 7.2 fL (7.5-11.2); Platelet Count 375 10^3/uL (150-450); Red Blood Count 3.41 10^6/uL (4.06-5.63); Red Cell Distribution Width 18.6 % (12-17); White Blood Count 15.1 10^3/uL (3.6-10.2)
[2023-03-09 04:57] LABS: Albumin 3.1 g/dL (3.2-5.2); Albumin/Globulin Ratio 1.1 (1-3); Calcium 8.5 mg/dL (8.6-10.3); Creatinine, Serum 1.5 mg/dL (0.67-1.17); Globulin 2.9 g/dL (2-4); Phosphorus 2.2 mg/dL (2.5-5.0); Potassium 3.8 mmol/L (3.5-5.0); Total Bilirubin 0.3 mg/dL (0.2-1.0); eGFR CKD-EPI 47.4 (>60)
[2023-03-09] MEDS: Morphine 2 MG/ML SYRINGE IV PRN (06:08)
[2023-03-09] MEDS: Tiotropium Brom/Olodaterol MDI (ACUTE) INH SCH (07:11)
[2023-03-09] MEDS ORDERED: Acetaminophen IV 1 GM/100ML 1,000 MG/100 ML BAG IV PRN (07:23)
[2023-03-10] MEDS: metroNIDAZOLE IV 500 MG/100ML 500 MG/100 ML BAG IVPB SCH ×4 (00:32→23:45)
[2023-03-10] MEDS: Heparin 5000 UNITS/ML 1 mL VIAL SUBCUT SCH ×4 (01:51→17:19)
[2023-03-10] MEDS: Cefepime 2 GM in Dextrose 2 GM/50 ML BAG IV SCH ×2 (02:48→14:29)
[2023-03-10 06:00] LABS: ABS Eosinophils 0.1 10^3/uL (0.0-0.5); ABS Lymphocytes 0.9 10^3/uL (1.0-4.8); ABS Neutrophils 8.9 10^3/uL (1.5-7.6); ABS Nucleated RBC 0.01 10^3/ul; Eosinophil % 1.1 %; Hematocrit 25.9 % (38-53); Hemoglobin 8.3 g/dL (13.2-16.3); Lymphocyte % 8.3 %; Mean Corpuscular Hgb Conc 32.1 g/dL (31-36); Mean Corpuscular Volume 84.2 fL (80-97); Mean Platelet Volume 7.7 fL (7.5-11.2); Nucleated Red Blood Cells % 0.1 /100 WBC (0.0-0.4); Platelet Count 339 10^3/uL (150-450); Red Blood Count 3.08 10^6/uL (4.06-5.63); Red Cell Distribution Width 18.5 % (12-17)
[2023-03-10 06:35] LABS: Albumin 2.9 g/dL (3.2-5.2); Calcium 8.3 mg/dL (8.6-10.3); Magnesium 1.8 mg/dL (1.9-2.7); Potassium 3.4 mmol/L (3.5-5.0); Total Bilirubin 0.3 mg/dL (0.2-1.0)
[2023-03-10 06:41] LABS: Creatinine, Serum 1.38 mg/dL (0.67-1.17); Globulin 2.8 g/dL (2-4); Phosphorus 2.5 mg/dL (2.5-5.0); Total Protein 5.7 g/dL (6.4-8.9); eGFR CKD-EPI 52.3 (>60)
[2023-03-10] MEDS: Tiotropium Brom/Olodaterol MDI (ACUTE) INH SCH (09:05)
[2023-03-10] MEDS: Ondansetron 4 mg VIAL 2 MG/ML 2 ml VIAL IV PRN (14:20)
[2023-03-10] MEDS ORDERED: Magnesium Sulfate 2 gm BAG 2 GM/50 ML BAG IVPB ONE (21:51)
[2023-03-11] MEDS: Heparin 5000 UNITS/ML 1 mL VIAL SUBCUT SCH ×3 (01:29→08:36)
[2023-03-11] MEDS: Cefepime 2 GM in Dextrose 2 GM/50 ML BAG IV SCH (02:58)
[2023-03-11 05:58] LABS: ABS Eosinophils 0.2 10^3/uL (0.0-0.5); ABS Lymphocytes 0.8 10^3/uL (1.0-4.8); ABS Monocytes 1.1 10^3/uL (0.0-1.1); ABS Neutrophils 7.6 10^3/uL (1.5-7.6); ABS Nucleated RBC 0.02 10^3/ul; Eosinophil % 1.7 %; Hematocrit 26.5 % (38-53); Hemoglobin 8.4 g/dL (13.2-16.3); Mean Corpuscular Hemoglobin 26.8 pg (27-33); Mean Corpuscular Hgb Conc 31.8 g/dL (31-36); Mean Platelet Volume 7.5 fL (7.5-11.2); Nucleated Red Blood Cells % 0.2 /100 WBC (0.0-0.4); Platelet Count 326 10^3/uL (150-450); Red Blood Count 3.16 10^6/uL (4.06-5.63); Red Cell Distribution Width 18.4 % (12-17); White Blood Count 9.7 10^3/uL (3.6-10.2)
[2023-03-11 06:21] LABS: Calcium 8.4 mg/dL (8.6-10.3); Creatinine, Serum 1.5 mg/dL (0.67-1.17); Globulin 3.1 g/dL (2-4); Magnesium 2.3 mg/dL (1.9-2.7); Phosphorus 2.2 mg/dL (2.5-5.0); Potassium 3.7 mmol/L (3.5-5.0); Total Bilirubin 0.3 mg/dL (0.2-1.0); Total Protein 6.1 g/dL (6.4-8.9); eGFR CKD-EPI 47.4 (>60)
[2023-03-11] MEDS ORDERED: Potassium Chlor 20 meq TAB.ER PO ONE (07:29)
[2023-03-11] MEDS: Tiotropium Brom/Olodaterol MDI (ACUTE) INH SCH (08:10)
[2023-03-11] MEDS ORDERED: Potassium Chlor 20 meq TAB.ER PO SCH (09:00)
[2023-03-11] MEDS: metroNIDAZOLE IV 500 MG/100ML 500 MG/100 ML BAG IVPB SCH (09:33)
[2023-03-11 10:55] VITALS: BP 118/63
== END 2023-03-11 15:15 | disposition home or self-care (01) | DRG 329 ==
LOC: ED 20:14 → EDHOLD 21:25 → SUATTDRO 21:25 → MEDTELE 23:21 → ICU 03-06 16:48 → SSU 03-09 12:14
PROVIDERS: ADMIT Hospitalist; ATTEND Internal Medicine

== ENCOUNTER 2024-04-27 19:18 | Inpatient (IN) ==
[2024-04-27 19:57] LABS: Hematocrit 19.5 % (38-53); Hemoglobin 6.1 g/dL (13.2-16.3)
[2024-04-27] MEDS ORDERED: ALBUTEROL INH PRN (21:02)
[2024-04-27] MEDS: Pantoprazole VIAL 40 MG VIAL IV SCH (21:46)
[2024-04-28 06:54] LABS: ABS Eosinophils 0.1 10^3/uL (0.0-0.5); ABS Lymphocytes 0.6 10^3/uL (1.0-4.8); ABS Monocytes 0.9 10^3/uL (0.0-1.1); ABS Neutrophils 4.3 10^3/uL (1.5-7.6); Eosinophil % 2.1 %; Hematocrit 24.6 % (38-53); Lymphocyte % 10.2 %; Mean Corpuscular Hemoglobin 30.3 pg (27-33); Mean Corpuscular Hgb Conc 32.4 g/dL (31-36); Mean Corpuscular Volume 93.3 fL (80-97); Mean Platelet Volume 7.1 fL (7.5-11.2); Platelet Count 223 10^3/uL (150-450); Red Blood Count 2.63 10^6/uL (4.06-5.63); Red Cell Distribution Width 17.4 % (12-17)
[2024-04-28 07:16] LABS: Magnesium 2.3 mg/dL (1.9-2.7); Phosphorus 3.6 mg/dL (2.5-5.0)
[2024-04-28 08:18] LABS: Albumin 3.8 g/dL (3.2-5.2); Albumin/Globulin Ratio 1.5 (1-3); Creatinine, Serum 1.26 mg/dL (0.67-1.17); Globulin 2.6 g/dL (2-4); Potassium 5.4 mmol/L (3.5-5.0); Total Bilirubin 0.5 mg/dL (0.2-1.0); Total Protein 6.4 g/dL (6.4-8.9)
[2024-04-28 08:33] LABS: Ferritin 34.8 ng/mL (24-336)
[2024-04-28 08:36] LABS: Folate 15.98 ng/mL (5.90-24.80)
[2024-04-28] MEDS: Albuterol HFA INHALER 8 gm MDI INH PRN (12:04)
[2024-04-28] MEDS: Furosemide 40 mg/4 ml IV VIAL IV SLOW PU SCH (12:04)
[2024-04-28 15:03] LABS: Hematocrit 24.8 % (38-53); Hemoglobin 8.1 g/dL (13.2-16.3)
[2024-04-28] MEDS: PEG 3000 GI LAVAGE 1 GALLON PO ONE (15:59)
[2024-04-29 06:18] LABS: Hematocrit 25.2 % (38-53); Hemoglobin 8.1 g/dL (13.2-16.3); Mean Corpuscular Hemoglobin 30.2 pg (27-33); Mean Corpuscular Hgb Conc 32.3 g/dL (31-36); Mean Corpuscular Volume 93.5 fL (80-97); Mean Platelet Volume 7.3 fL (7.5-11.2); Platelet Count 195 10^3/uL (150-450); Red Cell Distribution Width 16.4 % (12-17); White Blood Count 4.6 10^3/uL (3.6-10.2)
[2024-04-29 06:37] LABS: Calcium 8.3 mg/dL (8.6-10.3); Creatinine, Serum 1.36 mg/dL (0.67-1.17); Potassium 4.6 mmol/L (3.5-5.0); eGFR CKD-EPI 52.9 (>60)
[2024-04-29 06:50] LABS: ABS Eosinophils 0.1 10^3/uL (0.0-0.5); ABS Lymphocytes 0.8 10^3/uL (1.0-4.8); ABS Neutrophils 2.7 10^3/uL (1.5-7.6); Eosinophil % 2.7 %; Lymphocyte % 17.3 %; Nucleated Red Blood Cells % 0.1 %/100WBC (0.0-0.8)
[2024-04-29] MEDS ORDERED: PEG 3000 GI LAVAGE 1 GALLON PO ONE (12:44)
[2024-04-29] MEDS: PEG 3000 GI LAVAGE 1 GALLON PO ONE ×2 (13:50→13:51)
[2024-04-30] MEDS: PEG 3000 GI LAVAGE 1 GALLON PO ONE (04:18)
[2024-04-30 06:30] LABS: ABS Eosinophils 0.1 10^3/uL (0.0-0.5); ABS Lymphocytes 0.9 10^3/uL (1.0-4.8); ABS Monocytes 0.9 10^3/uL (0.0-1.1); ABS Neutrophils 2.6 10^3/uL (1.5-7.6); Eosinophil % 3.2 %; Hematocrit 25.7 % (38-53); Hemoglobin 8.4 g/dL (13.2-16.3); Lymphocyte % 19.9 %; Mean Corpuscular Hemoglobin 30.1 pg (27-33); Mean Corpuscular Hgb Conc 32.8 g/dL (31-36); Mean Corpuscular Volume 91.6 fL (80-97); Mean Platelet Volume 7.1 fL (7.5-11.2); Nucleated Red Blood Cells % 0.1 %/100WBC (0.0-0.8); Platelet Count 234 10^3/uL (150-450); Red Blood Count 2.81 10^6/uL (4.06-5.63); Red Cell Distribution Width 16.3 % (12-17); White Blood Count 4.6 10^3/uL (3.6-10.2)
[2024-04-30 06:51] LABS: Calcium 9.1 mg/dL (8.6-10.3); Creatinine, Serum 1.29 mg/dL (0.67-1.17); Potassium 4.6 mmol/L (3.5-5.0); eGFR CKD-EPI 56.4 (>60)
[2024-04-30] MEDS ORDERED: Naloxone 0.4 mg VIAL 0.4 mg/ml 1 ml VIAL IV PUSH PRN (08:28)
[2024-04-30] MEDS ORDERED: Flumazenil 0.5 mg/5 ml 0.1 MG/ML 5 ml VIAL IV PRN (08:28)
[2024-04-30] MEDS ORDERED: Midazolam 10 mg/10 ml VIAL 1 mg/ml 10 ml VIAL (10 mg) ONE (10:52)
[2024-04-30] MEDS ORDERED: fentaNYL 100 mcg/2 ml 50 MCG/ML VIAL ONE (10:52)
[2024-04-30] MEDS: fentaNYL 100 mcg/2 ml 50 MCG/ML VIAL IV SLOW PU ONE (23:24)
[2024-04-30] MEDS: Lactated Ringers 1000 ml BAG 1,000 ML IV ONE (23:24)
[2024-04-30] MEDS: Midazolam 10 mg/10 ml VIAL 1 mg/ml 10 ml VIAL (10 mg) IV SLOW PU ONE (23:24)
[2024-04-30] MEDS: Ondansetron 4 mg VIAL 2 MG/ML 2 ml VIAL IV ONE (23:25)
[2024-05-01 06:21] LABS: ABS Eosinophils 0.1 10^3/uL (0.0-0.5); ABS Lymphocytes 0.9 10^3/uL (1.0-4.8); ABS Monocytes 1.1 10^3/uL (0.0-1.1); ABS Neutrophils 3.7 10^3/uL (1.5-7.6); Eosinophil % 2.5 %; Hematocrit 26.6 % (38-53); Hemoglobin 8.7 g/dL (13.2-16.3); Lymphocyte % 15.7 %; Mean Corpuscular Hemoglobin 30.1 pg (27-33); Mean Corpuscular Hgb Conc 32.7 g/dL (31-36); Mean Corpuscular Volume 91.9 fL (80-97); Mean Platelet Volume 7.4 fL (7.5-11.2); Platelet Count 244 10^3/uL (150-450); Red Blood Count 2.89 10^6/uL (4.06-5.63); Red Cell Distribution Width 15.9 % (12-17); White Blood Count 5.9 10^3/uL (3.6-10.2)
[2024-05-01 06:26] LABS: Calcium 9.1 mg/dL (8.6-10.3); Creatinine, Serum 1.6 mg/dL (0.67-1.17); Potassium 4.4 mmol/L (3.5-5.0); eGFR CKD-EPI 43.6 (>60)
[2024-05-01] MEDS ORDERED: Calcium Polycarbophil 625mg TB PO SCH (09:00)
[2024-05-01] MEDS: Psyllium PAK PO SCH (09:22)
[2024-05-01] MEDS: Polyethylene Glycol 3350 17 GM PACKET PO SCH (09:22)
[2024-05-01 09:51] VITALS: BP 111/59
== END 2024-05-01 13:00 | disposition home or self-care (01) | DRG 378 ==
LOC: ED 19:18 → MEDTELE 20:27 → EDHOLD 20:27 → MEDTELE 21:50
PROVIDERS: ADMIT Hospitalist; ATTEND Hospitalist